=== PATIENT | male | born 1990 | race Caucasian/White ===

== ENCOUNTER 2021-08-15 10:04 | Emergency (ER) | payer OTHER ==
[~2021-08-15] VITALS: Ht 180.3 cm; Wt 77.1 kg
[2021-08-15 10:11] VITALS: BP 122/73
--- NOTE | 2021-08-15 10:39 | NUR ---
Patient discharged to home in stable condition. Written and verbal after care instructions given. Patient verbalizes understanding of instruction.
== END 2021-08-15 10:41 | disposition home or self-care (01) ==
LOC: ER 10:08
DX: S86.812A Strain of other muscle(s) and tendon(s) at lower leg level, left leg, initial encounter (principal); W22.8XXA Striking against or struck by other objects, initial encounter; Y93.89 Activity, other specified; Y92.89 Other specified places as the place of occurrence of the external cause; Y99.8 Other external cause status